=== PATIENT | female | born 1995 | race Caucasian/White ===

== ENCOUNTER 2017-10-28 13:47 | Emergency (ER) | payer BC ==
[2017-10-28 14:23] VITALS: BP 116/74
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
== END 2017-10-28 22:39 | disposition left against medical advice (07) ==
LOC: ED 13:47
DX: Z53.21 Procedure and treatment not carried out due to patient leaving prior to being seen by health care provider (principal)